=== PATIENT | female | born 1965 | race Caucasian/White ===

== ENCOUNTER 2018-07-22 21:23 | Inpatient (IN) ==
[2018-07-22 22:16] LABS: BASO# 0.02 X1000 (0.0-0.2); BASO% 0.1 % (0.0-0.8); EOS# 0.13 X1000 (0.0-0.7); EOS% 0.9 % (0.0-10.0); HEMATOCRIT 38.9 % (37.0-47.0); HEMOGLOBIN 13.4 g/dL (12.0-16.0); IMM GRAN# 0.07 X1000 (0.0-0.04); IMM GRAN% 0.5 % (0.0-0.5); LYMPH# 0.75 X1000 (1.2-3.4); LYMPH% 4.9 % (20.5-51.1); MCH 33.8 PG (27-31); MCHC 34.4 g/dL (33-37); MCV 98.2 FL (81-99); MONO# 0.53 X1000 (0.11-0.59); MONO% 3.5 % (1.7-9.3); MPV 9.8 FL (7.4-10.4); NEUT# 13.77 X1000 (1.4-6.5); NEUT% 90.1 % (42.2-75.2); PLT 280 X1000 (130-400); RBC 3.96 XMIL (4.2-5.4); WBC 15.27 X1000 (4.8-10.8)
[2018-07-22 22:20] LABS: ALB/GLOB RATIO 1.2; ALBUMIN 3.8 g/dL (3.5-5.0); CALCIUM 9.3 mg/dL (8.8-10.2); CREATININE 7.7 mg/dL (0.5-0.9); POTASSIUM 3.1 mmol/L (3.5-5.1); TOTAL BILIRUBIN 0.21 mg/dL (0.20-1.00); TOTAL PROTEIN 6.9 g/dL (6.3-8.3)
[2018-07-22] MEDS ORDERED: ZOFRAN IV ONE (23:00)
[2018-07-22] MEDS ORDERED: ROCEPHIN 2 GM in NS 50 ML IV ONE (23:09)
[2018-07-22 23:21] LABS: URINE SOURCE CLEAN CATCH
[2018-07-22 23:52] LABS: BILIRUBIN URINE NEGATIVE (NEGATIVE); BLOOD URINE SMALL (NEGATIVE); COLOR YELLOW; GLUCOSE URINE NEGATIVE (NEGATIVE); KETONE URINE NEGATIVE (NEGATIVE); LEUKOCYTES URINE LARGE (NEGATIVE); NITRITE URINE NEGATIVE (NEGATIVE); PH URINE 6.5; PROTEIN URINE 30 mg/dL (NEGATIVE); SP GRAVITY URINE 1.009; TURBIDITY URINE CLEAR (CLEAR); UR EPITHELIAL CELLS <10 /HPF (<10); URINE BACTERIA 1+ /HPF; URINE RBC <10 /HPF (<10); URINE WBC TNTC /HPF (<10); UROBILINOGEN URINE NORMAL (NORMAL)
[2018-07-23] MEDS ORDERED: MORPHINE IV ONE (00:08)
[2018-07-23] MEDS ORDERED: ZOFRAN IV ONE (00:09)
[2018-07-23 00:20] LABS: LDH BODY FLUID 980 U/L
--- NOTE | 2018-07-23 00:52 | PROVIDER DOCUMENTATION ---
This chart was entered by Jordan Person Scribe, acting as scribe for Otis Morrow MD. HPI-Abdominal Pain/GI Problem - General Stated Complaint: Abd pain Time Seen by Provider: 07/22/18 21:29 Source: patient Allergies/Adverse Reactions: Patient Allergies Allergy/AdvReac Type Severity Reaction Status Date / Time Sulfa (Sulfonamide Allergy Unknown Verified 11/18/15 10:48 Antibiotics) Home Medications: Home Medication List Medication Instructions Recorded Confirmed Last Taken Type Albuterol Sulfate [Proair Hfa] 8.5 gm IH PRN PRN 04/19/14 11/22/15 11/20/15 History Calcitriol 0.25 mcg PO DAILY 04/19/14 11/22/15 11/15/15 09:00 History Citalopram Hydrobromide 20 mg PO DAILY 04/19/14 11/22/15 11/21/15 09:00 History [Citalopram HBr] Iron Fum,Ps/Folic/Bcomp,C No.9 1 each PO DAILY 04/19/14 11/22/15 11/19/15 09:00 History [Integra Plus Capsule] Omeprazole 40 mg PO DAILY 04/19/14 11/22/15 11/21/15 09:00 History Pravastatin Sodium 40 mg PO QHS 04/19/14 11/22/15 11/20/15 20:00 History Tiotropium [place] Inhaler 1 puff INH RTDAILY 04/19/14 11/22/15 11/20/15 09:00 History [Spiriva] Vitamin B Complex [B Complex] 1 each PO DAILY 04/19/14 11/22/15 11/20/15 09:00 History Hydralazine [Apresoline] 25 mg PO TID #90 tablet 11/05/15 11/22/15 11/22/15 05: 00 Rx Loratadine 10 mg PO DAILY 11/18/15 11/22/15 11/19/15 09:00 History Hydrocodone/Acetaminophen [[place] 1 each PO Q4H PRN PRN #20 tablet 11/22/15 Unknown Rx 10-325 Tablet] - History of Present Illness-ABD Nature of Presenting Problems: Pt is a 52 y/o F presents to the ED with diffuse abdominal pain that began at 6pm today. Abdominal Pain Onset Location: reports: generalized abdomen Pain Radiation: reports: no radiation Quality of Pain: reports: aching Severity in ED: reports: moderate Onset/Duration: reports: this evening (6pm) Timing: reports: still present Activities at Onset: reports: none Modifying Factors: improves with: nothing Associated Symptoms: denies: cough, diarrhea, fever/chills, sinus congestion/ drainage, nausea, shortness of breath, vomiting Review of Systems - Adult - REVIEW OF SYSTEMS - ADULT Constitutional: denies: chills, fever Eyes: reports: no symptoms reported Ears, Nose, Mouth & Throat: reports: no symptoms reported Cardiovascular: denies: chest pain, edema Respiratory: denies: cough, shortness of breath, wheezing Gastrointestinal: reports: abdominal pain. denies: diarrhea, nausea, vomiting Genitourinary: reports: no symptoms reported Musculoskeletal: denies: back pain, neck pain Integumentary: reports: no symptoms reported Neurological: denies: dizziness/vertigo, headache/migraines Psychiatric: reports: no symptoms reported Endocrine: reports: no symptoms reported Hematologic/Lymphatic: reports: no symptoms reported Allergic/Immunologic: reports: no symptoms reported All Other Systems: Reviewed and Negative Past History - Adult - PAST MEDICAL HISTORY-ADULT Review of Records: reports: Old Records Reviewed, Nursing Assessment Review, Medications Reviewed Major Childhood Illnesses: reports: denies history Cardiovascular: reports: HTN Respiratory: reports: COPD Gastrointestinal: reports: GERD Obstetrical/Gynecological: reports: denies history Genitourinary: reports: ESRD Musculoskeletal: reports: denies history Neurological: reports: denies history Psychiatric: reports: anxiety Endocrine/Immune: reports: denies history Other Conditions: reports: denies history, other (iron deficiency anemia) - PRIOR SURGERIES/PROCEDURES Surgical/Procedure History: reports: other (lumpectomy) - IMMUNIZATION STATUS Childhood Immunizations: See Nurse Assessment Flu Vaccine: See Nurse Assessment - FAMILY HISTORY Family History: reviewed, not pertinent - SOCIAL HISTORY Smoking: cigarettes, greater than 1 pack/day Substance Use: none/never Living Situation: family Physical Exam-General - CONSTITUTIONAL General Appearance: alert, no apparent distress - EYES Eyes: PERRL/EOMI, pink conjunctivae - HEAD, EARS, NOSE, MOUTH & THROAT HENMT: moist mucous membranes, normal ENT inspection, pharynx normal - NECK Neck: non-tender, full range of motion, supple, normal inspection - RESPIRATORY Respiratory: lungs clear, normal breath sounds, no pleuratic chest pain, no respiratory distress, no accessory muscle use - CARDIOVASCULAR Cardiovascular: normal peripheral pulses, regular rate, rhythm - GASTROINTESTINAL (ABDOMEN) Abdominal Exam: soft, tenderness (epigstric and diffuse). negative: guarding, rebound - MUSCULOSKELETAL Back Exam: normal inspection, no CVA tenderness, no vertebral tenderness Extremity: normal range of motion, non-tender, normal gait, normal inspection - SKIN Integumentary: normal color, normal turgor - NEUROLOGIC Neurologic: grossly normal, no motor/sensory deficits - PSYCHIATRIC Psych/Mental Status: normal mood/affect, normal thought content, normal thought process, oriented x 3 Progress - PLAN OF CARE/RESULTS Progress/Plan/Lab Results: Orders Category Date Time Status Saline Loc NOW Care 07/22/18 21:23 Active CHEST-2 VIEWS [RAD] Stat Exams 07/22/18 21:23 Ordered CBC WITH ELECTRONIC DIFF [HEME] Stat Lab 07/22/18 21:23 Uncollected COMPREHENSIVE METABOLIC PANEL [CHEM] Stat Lab 07/22/18 21:23 Uncollected LACTATE, PLASMA [CHEM] Stat Lab 07/22/18 21:23 Uncollected URINALYSIS W/POSS RFLX CULT [URINALYSIS] Stat Lab 07/22/18 21:23 Uncollected A/P will admit for suspected peritonitis, milky ascitic fluid, elevated white count, N/V, pain. Spoke with Dr correa for admission. Result Diagrams: 07/22/18 21:30 07/22/18 21:30 - REASSESSMENT Reassessment #1 Time Reassessed: 22:30 (pt feeling better requesting ) Status: improving Reassessment #2 Time Reassessed: 23:30 Status: improving Reassessment #3 Time Reassessed: 23:48 Status: unchanged Reassessment #4 Time Reassessed: 00:09 Status: other (complaining of abdominal pain, and nausea, will give morphine and zofran) - CT/MRI 1 CT Study: Abdomen, Pelvis Impression: Abnormal (1. Moeate amount of free fuid in the abdomen and pelvis likely related to patient periotoneal dialysis. 2. Gallstones within the gallbaldder. No gallbaldder wall thickening identified but there is some mild pericholexystic fluid which maybe related to the ascites. Ultrasound may be considered for further evaluatin. 3. Small atophic kidneys. Small right renal stone withour hydronephrosis. $. Norm; appendix), See EMR Report - CONSULTS/PCP/HOSPITALIST Notification #1 *Consult/PCP/Hospitalist*: Hospitalist- Dr Correa Time Discussed: 00:45 Reason/Comments: Review of HPI for admission Consult Disposition: Will see in ED (Accepts) Departure - Departure Date of Disposition Decision: 07/23/18 Time of Disposition Decision: 00:49 DIAGNOSIS: Abdominal pain, Spontaneous bacterial peritonitis Disposition: ADMITTED INPATIENT 09 Certified Medical Emergency: Emergent Condition: Fair Referrals and Follow-Ups: None,PCP [Primary Care Provider] - Discharge Education: Steps to Quit Smoking, [id number] - Critical Care Note This patient required my direct & personal management of CC.: No Attestation - Physician/ MEG Attestation Patient care was provided by Advanced Practice Provider:: No The physician spent face to face time with patient:: Yes Advanced Practice Provider documentation review:: Supervising physician onsite and consulted in the evaluation and care of this patient. The physician did have a face to face encounter with the patient. This chart was documented by the indicated scribe, (Jordan Person Scribe) and accurately reflects the services I performed and decisions made by me, Otis Morrow MD, as attested by the provider's signature.
[2018-07-23] MEDS ORDERED: ZOSYN 3.375 GM in NS 50 ML IV SCH (01:00)
[2018-07-23 01:05] LABS: BODY FLUID SOURCE PERITONEAL FLUID; MONOS 10 %; POLYS 90 %
[2018-07-23 01:06] LABS: WBC BF 9300 /cumm
[2018-07-23] MEDS ORDERED: KLOR-CON PO ONE (01:43)
[2018-07-23] MEDS ORDERED: NS 500 ML IV ONE (01:43)
[2018-07-23 03:22] LABS: INR 0.91; PTT 27.7 Seconds (22.3-41.8)
--- NOTE | 2018-07-23 04:17 | HISTORY AND PHYSICAL ---
ADDENDUM HISTORY OF PRESENT ILLNESS: Ms Liat Adkins is a 52-year-old lady with endstage kidney disease on hemodialysis and has a history of hypertension. She comes today complaining of diffuse abdominal pain with associated chills, but no fever. She has since had about 6 vomiting episodes. The most recent emesis contained recently eaten food. She denies any cardiorespiratory complaints. PHYSICAL EXAMINATION: GENERAL: A middle-aged woman who is moderate distress from pain. VITAL SIGNS: Blood pressure is 148/85, heart rate 91, respiratory rate is 20, temperature is 98.5. ABDOMEN: Slightly protuberant, soft, diffusely tender with positive rebound, but no guarding. Bowel sounds are hypoactive. LAB WORK: Showed a white count of 16,000 with 90% left shift. Potassium was 31, BUN is 57, creatinine is 7.7. A CT scan was done and it showed no evidence of acute cholecystitis and did show ascitic fluid. The patient's ascitic fluid aspirate was cloudy, but cell count is pending. PLAN: We will await final ID and sensitivities. Start the patient on Zosyn to cover for intraabdominal pathogens, i.e. gram-negatives and anaerobes. The patient is slightly volume- depleted; will give IV fluids and correct hypokalemia. Will consult Dr. 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 Will treat the patient symptomatically otherwise. cc: Haresh Correa MD
--- NOTE | 2018-07-23 05:40 | HISTORY AND PHYSICAL ---
PRIMARY CARE PROVIDER AND HOMICIDE [employer]QU[employer] COMMANDING OFFICER: Dr. Medley DATE AND TIME: 07/23/2018 at 0200. CHIEF COMPLAINT: Abdominal pain with nausea and vomiting. HISTORY OF PRESENT ILLNESS: Ms Adkins is a 52-year-old female with past medical history most notable for end stage renal disease on nightly peritoneal dialysis. She also has a history of hypertension, hyperlipidemia, iron deficiency anemia and COPD. The patient states that for a few days now that she "hasn't felt right." She stated yesterday at approximately 6 p.m. she began having sharp abdominal pain that was 10/10. It was in her periumbilical area. She states this pain was constant. It is now an achy type pain, and is more generalized. She states that after receiving morphine in the ER that her pain has resolved at this time. She also reports that she has had approximately 6 episodes of vomiting and that her emesis was a foamy yellow. She denied any hematemesis, hematochezia or melena. The patient denied any diarrhea , stated her last bowel movement was today. Denied any fever, body aches, but is reporting chills. She also reported that she had been having dysuria for a few days now. She denied any recent history of urinary tract infection, but stated that she was diagnosed with a vaginal yeast infection approximately [address] Medley had given her a prescription for fluconazole 100 mg daily p.o. for 7 days and has 2 more days for this prescription to be taken. She denied any headache or dizziness. She denied any chest pain or shortness of breath. She also denied any pain, numbness, tingling or swelling in her extremities. On evaluation in the ER, the patient was noted to have a white blood cell count of 15,270. She was mildly hypokalemic with a potassium of 3.1. She also was noted to have large leukocytes, too numerous to count WBCs, and 1 plus bacteria in her urine. They did obtain some peritoneal fluid which did show that the patient had white blood cells and a peritoneal fluid of 9300. On her chest x-ray the patient did appear to have some COPD changes though at this time there does not appear to be any acute abnormalities although we are awaiting official radiology reading. CT abdomen and pelvis without contrast did show a moderate amount of free fluid in the abdomen and pelvis most likely related to the patient's peritoneal dialysis. There was gallstones within the bladder, but there was no gallbladder wall thickening identified, but there was some mild pericholecystic fluid which may be related to ascites. Small atrophic kidneys and there was a small right renal stone without hydronephrosis. There was a normal appendix. Given these findings, the patient will be admitted for further evaluation of peritonitis and urinary tract infection. REVIEW OF SYSTEMS: A 14-point review of systems was conducted with the patient and all were negative except for pertinent positives mentioned in the above HPI. PAST MEDICAL HISTORY: 1. Endstage renal disease on peritoneal dialysis followed by Dr. Medley. 2. COPD. 3. Gastrointestinal disease. 4. Hypertension for which the patient states she no longer to take medication for. 5. Hyperlipidemia. 6. Iron deficiency anemia. 7. Seasonal allergies. 8. Anxiety. PAST SURGICAL HISTORY: 1. Breast biopsy with subsequent benign tumor removal. 2. Renal biopsy. 3. Peritoneal dialysis port placement. SOCIAL HISTORY: The patient is a current smoker and smokes 1 to 1-1/2 packs or cigarettes per day and has done for approximately 36 years. She denies any alcohol or illicit drug use. States that she does live with her daughter at this time. FAMILY HISTORY: Positive for hypertension, diabetes mellitus, congestive heart failure, coronary artery disease and colon cancer. She also had a brother that from an MT at age 53. ALLERGY: The patient reports allergy to sulfa. HOME MEDICATIONS: We are awaiting the patient's home medication list to be reconciled at this time. She reports that her sister does have a list is supposed to be bringing this list to the hospital, though the patient reports that she has recently been prescribed Diflucan 100 mg p.o. for a yeast infection for which she states she has completed day 5 of this 7-day supply and has 2 doses left. DIAGNOSTIC DATA/LABORATORY RESULTS: White blood cell count is 15,270, hemoglobin 13.4, hematocrit 38.9, platelet count 280,000. PT 13, INR 0.91, PTT 27.7. Sodium 138, potassium 3.1, chloride 95, bicarbonate 24, BUN 57, creatinine 7.7 with a GFR of 6, glucose 111, calcium 9.3. Liver function tests were within normal limits. Lactate is 1.1. Urinalysis is obtained via clean catch, positive for protein, small blood, large leukocytes and too numerous to count white blood cells and 1+ bacteria. Peritoneal fluid did have 9300 white blood cells. There were 90 polynuclear white blood cells, 10 mononuclear white blood cells and LDH was 980. Urine culture and blood culture as well as peritoneal fluid culture and Gram stain are pending at this time. We are also awaiting an EKG. Chest x-ray shows some COPD changes and no acute abnormalities and we are awaiting the official radiology over-read. CT abdomen and pelvis does show a moderate amount of free fluid in the abdomen and pelvis likely related to the patient's peritoneal dialysis. There are gallstones within the gallbladder. There is no gallbladder wall thickening identified, but there is some mild pericholecystic fluid which may be related to ascites. The radiologist did state that ultrasound may be considered for further evaluation. There are small atrophic kidneys. There is also a small right renal stone without hydronephrosis and a normal appendix. PHYSICAL EXAMINATION: VITAL SIGNS: Temperature 98.4, heart rate 87, respirations 20, blood pressure 124/78. Oxygen saturation is 93-94% on room air. GENERAL: Ms Adkins is a very pleasant 52-year-old female who is resting in the ER stretcher. She is no acute distress. She is awake, alert and able to answer questions appropriately. HEENT: Head is atraumatic, normocephalic. Pupils are equal, round, and reactive to light. They are 3 mm bilaterally and brisk. Oral mucosa is moist. Oropharynx is clear. NECK: Supple. Trachea midline. CARDIOVASCULAR: The patient has normal S1 and S2. No murmurs, gallops or rubs appreciated. Regular rate and rhythm. PULMONARY: The patient has symmetrical chest expansion bilaterally. Lung sounds are clear to auscultation in bilateral full molina. ABDOMEN: Soft. It does appear to be distended. She does have generalized tenderness noted upon palpation. The patient's peritoneal dialysis port site does appear to be within normal limits. She has no erythema, warmth or drainage noted in this area. Bowel sounds are present although are hypoactive. EXTREMITIES: No cyanosis, clubbing or edema noted. Pulse, motor and sensory are intact in all extremities. Radial pulses and pedal pulses are 2+ bilaterally. NEUROLOGIC: The patient is alert and oriented to person, place, time and situation. There do not appear to be any focal neurologic deficits noted. IMPRESSION AND PLAN: 1. Peritonitis. For further evaluation of this we have performed peritoneal fluid studies. We are awaiting a culture at this time. We have obtained blood cultures as well. The patient has been placed with antibiotic with Zosyn. This has been renally dosed. We have placed a consult with Dr. Medley and will await his evaluation and further recommendations in the morning. 2. Urinary tract infection. The patient is on antibiotic with Zosyn. We will continue this. A urine culture has been ordered. We will await this and continue to follow. 3. Abdominal pain, nausea and vomiting. At this time it is likely that her abdominal pain is related to her peritonitis and she does have a urinary tract infection as well. We will continue treatment of this as above in #1 and #2. We have placed her on p.r.n. morphine and Zofran as needed. 4. Endstage renal disease on peritoneal dialysis. For this we have placed a consult with Dr. Medley and will await his evaluation and further recommendations for management. 5. Mild hypokalemia. The patient did receive 20 mEq of potassium chloride. We will repeat her renal profile later this morning. 6. Gastroesophageal reflux disease. The patient has been placed on Protonix 40 mg q.24 hours. 7. Chronic obstructive pulmonary disease. We have placed p.r.n. DuoNeb treatments. 8. Deep vein thrombosis prophylaxis with bilateral sequential compression devices. We will hold anticoagulants at this time until she has been evaluated by Dr. Medley in case she may require any procedures related to her peritonitis. The patient has been placed on the medical floor with telemetry. She will have vital signs q.4 hours, will do strict intake and output, incentive spirometry. The patient will be n.p.o. except for ice chips. Also, the patient was recently diagnosed with vaginal candidiasis and was given a prescription for Diflucan 100 mg p.o. daily for 7 days. She does have 2 doses left and we will go ahead and place an order for this as well. Further orders and recommendations pending hospital course, diagnostic studies, and physician evaluation. Dictated by YENY Pearson for Haresh Correa MD cc: Haresh Correa MD [facility]
[2018-07-23] MEDS: ZOSYN 2.25 GM in NS 50 ML IV SCH ×2 (06:02→17:59)
[2018-07-23] MEDS ORDERED: TYLENOL PO PRN (07:06)
[2018-07-23] MEDS ORDERED: ZOFRAN IV PRN (07:06)
--- NOTE | 2018-07-23 07:20 | Diag Imaging Result Doc PS360 ---
EXAM: CHEST-1 VIEW 07/22/2018 HISTORY: missed diaslys TECHNIQUE: AP portable at 2226 COMMENT: There is minimal interstitial pulmonary edema which was not present on 04/25/2017. IMPRESSION: Minimal pulmonary edema. Electronically signed by Jaime Posada 07/23/2018 7:18 AM
--- NOTE | 2018-07-23 07:23 | EKG Report ---
Test Performed on : 07/23/2018 03:39:14 AM Test Reason : Abd. Pain with N/V Blood Pressure : / mmHG Vent. Rate : 082 BPM Atrial Rate : 082 BPM P-R Int : 108 ms QRS Dur : 082 ms QT Int : 430 ms P-R-T Axes : 048 018 052 degrees QTc Int : 502 ms Sinus rhythm. with short [place] Nonspecific ST abnormality Prolonged QT Abnormal ECG When compared with ECG of 18-NOV-2015 11:16, No significant change was found Unconfirmed Result
--- NOTE | 2018-07-23 07:32 | Diag Imaging Result Doc PS360 ---
EXAM: CT ABD/PELVIS W/IV CONT ONLY INDICATION: abdominal pain TECHNIQUE: This exam was performed using automated exposure control, adjustment of mA or kV according to patient size, and/or use of iterative reconstruction technique. COMPARISON: None. FINDINGS: There are mild COPD changes at the lung bases. There is a tiny low dense focus at the inferior right hepatic lobe that probably represents a very small cyst. The liver is unremarkable, otherwise. There are a few layering stones in the gallbladder lumen. There is no evidence of gallbladder wall thickening. There is a tiny low dense focus involving the spleen also probably represents a cyst. The spleen is unremarkable, otherwise. The pancreas and adrenal glands are essentially unremarkable. There is a moderate amount of free fluid in the abdomen tracking around the liver and spleen and layering in the pelvis. There is a peritoneal dialysis catheter in the pelvis. The kidneys are both atrophic. There are a few tiny renal cysts bilaterally. There is a small nonobstructing intrarenal stone at the lower pole of the right kidney. There is no hydronephrosis. No solid renal mass is identified. The urinary bladder is unremarkable. The reproductive tract is essentially unremarkable CT. There is nonspecific coarse calcification in the anterior left pelvis on image 100 that probably represents an old focus of fat necrosis. The appendix is normal. There is mild uncomplicated diverticulosis coli. The GI tract is essentially unremarkable, otherwise. There is aortoiliac atherosclerotic calcification. The bony structures are grossly intact. IMPRESSION: 1.Moderate amount of free fluid in the abdomen that is assumed to be related to peritoneal dialysis. 2.Cholelithiasis. 3.Other external/nonacute findings detailed above. Electronically signed by Hosea Muñoz 07/23/2018 7:29 AM
[2018-07-23 08:07] LABS: EOS# 0.01 X1000 (0.0-0.7); EOS% 0.1 % (0.0-10.0); HEMATOCRIT 33.2 % (37.0-47.0); HEMOGLOBIN 11.2 g/dL (12.0-16.0); IMM GRAN# 0.03 X1000 (0.0-0.04); IMM GRAN% 0.2 % (0.0-0.5); LYMPH# 0.55 X1000 (1.2-3.4); LYMPH% 3.4 % (20.5-51.1); MCH 33.3 PG (27-31); MCHC 33.7 g/dL (33-37); MCV 98.8 FL (81-99); MONO# 0.42 X1000 (0.11-0.59); MONO% 2.6 % (1.7-9.3); MPV 9.8 FL (7.4-10.4); NEUT# 15.27 X1000 (1.4-6.5); NEUT% 93.7 % (42.2-75.2); PLT 213 X1000 (130-400); RBC 3.36 XMIL (4.2-5.4); RDW 12.1 % (11.5-14.5); WBC 16.28 X1000 (4.8-10.8)
[2018-07-23 08:10] LABS: BANDS 14 % (0-1); LYMPHS 4 % (21-51); MONO 2 % (1-9); SEGS 78 % (42-75)
[2018-07-23] MEDS ORDERED: VANCOMYCIN 1 GM/NS 1 GM/250 ML IVPB IV ONE (08:16)
[2018-07-23] MEDS: DIFLUCAN PO SCH (08:51)
[2018-07-23] MEDS: MORPHINE IV PRN ×3 (08:51→22:33)
[2018-07-23] MEDS: SODIUM CHLORIDE 0.9% INJ SCH (08:53)
[2018-07-23] MEDS: PROTONIX IV SCH (08:53)
[2018-07-23 08:58] LABS: ALBUMIN 3.1 g/dL (3.5-5.0); CALCIUM 7.8 mg/dL (8.8-10.2); MAGNESIUM 1.3 mg/dL (1.5-2.7); PHOSPHORUS 4.8 mg/dL (2.7-4.5); POTASSIUM 3.7 mmol/L (3.5-5.1)
[2018-07-24] MEDS: MORPHINE IV PRN ×3 (03:07→12:31)
--- NOTE | 2018-07-24 03:15 | NEPHROLOGY CONSULTATION ---
DATE: 07/23/2018 REASON FOR CONSULTATION: ESRD and peritonitis. HISTORY OF PRESENT ILLNESS: Ms. Adkins is a 52-year-old, white female who is currently using CAPD for management of CKD stage 5D. She has been using this modality for an extended time and has never had a complication. She performed her procedure overnight, the night prior to admission. She had no difficulty. She had not noticed any change in her fluid that was in her affluent jug. Through the day, she says she was well until the evening when she had marked weakness, abdominal pain, nausea, and vomiting. No chills or fevers. Bowel movements were normal. No shortness of breath or chest discomfort. Her symptoms worsened such that she ultimately came to the emergency room by ambulance. Her initial evaluation found blood pressure 129/74 with heart rate 88. She had a tender abdomen on exam which led to CT of the abdomen which demonstrated a moderate amount of free fluid, consistent with peritoneal dialysis, but no other acute findings. Cell count of her peritoneal dialysis fluid found 9300 white cells with 90% polys. She was dosed with Zosyn and admitted to the hospital. At the time of my exam, she was still having significant pain. PAST MEDICAL HISTORY: As above. HOME MEDICATIONS: Include multivitamin, calcitriol, citalopram, ferric citrate, fluconazole, furosemide, omeprazole, potassium chloride, tiotropium, albuterol, magnesium oxide. ALLERGIES: Sulfa. SOCIAL HISTORY: She lives with her daughter and her grandchildren. Still smokes. REVIEW OF SYSTEMS: Noncontributory. FAMILY HISTORY: Noncontributory. PHYSICAL EXAMINATION: My examination was performed at approximately 08:00. Vital Signs: Temperature 99.9 degrees, blood pressure 103/66, heart rate 93. General: She is a middle-aged woman in obvious pain but no acute distress. Skin: Warm and dry. Somewhat flushed. HEENT: Conjunctivae are pink. Pupils are equal. Oropharynx is clear. Tongue is dry. Dentition normal. Neck: Supple. Trachea is midline. Neck vein distention is not present. Trachea is midline. Heart: PMI is nondisplaced. Regular rate and rhythm without gallops, murmurs, or rubs. Lungs: Have equal excursion, equal breath sounds. No crackles, wheezes, or accessory muscle use. Abdomen: Distended, tender. Bowel sounds are present. No palpable organomegaly. Extremities: Have no edema, clubbing, or cyanosis. IMPRESSION AND PLAN: Acute bacterial peritonitis. I administered a dose of vancomycin at 08:00. Continue her Zosyn as ordered. We will ask pharmacy to dose her vancomycin while she is an inpatient. Cultures were obtained and data are pending. I will use the cycler with 1 hour cycle duration in order to decrease her burden of inflammatory substances in her abdomen. She was reexamined late in the day at around 4:30 p.m. and her pain was significantly improved and she was hungry. Re-evaluate her peritoneal dialysis fluid in the morning. You can hold her oral medications for now. cc: Gregorio Medley MD
[2018-07-24 06:21] LABS: BASO# 0.01 X1000 (0.0-0.2); BASO% 0.1 % (0.0-0.8); EOS% 1.6 % (0.0-10.0); HEMATOCRIT 34.3 % (37.0-47.0); HEMOGLOBIN 11.4 g/dL (12.0-16.0); IMM GRAN# 0.03 X1000 (0.0-0.04); IMM GRAN% 0.2 % (0.0-0.5); LYMPH# 1.07 X1000 (1.2-3.4); LYMPH% 8.3 % (20.5-51.1); MCH 33.2 PG (27-31); MCHC 33.2 g/dL (33-37); MONO# 0.57 X1000 (0.11-0.59); MONO% 4.4 % (1.7-9.3); MPV 9.8 FL (7.4-10.4); NEUT# 10.95 X1000 (1.4-6.5); NEUT% 85.4 % (42.2-75.2); PLT 215 X1000 (130-400); RBC 3.43 XMIL (4.2-5.4); RDW 12.3 % (11.5-14.5); WBC 12.83 X1000 (4.8-10.8)
[2018-07-24] MEDS: ZOSYN 2.25 GM in NS 50 ML IV SCH ×2 (06:40→22:23)
[2018-07-24 06:54] LABS: BANDS 6 % (0-1); LYMPHS 18 % (21-51); MONO 4 % (1-9); SEGS 72 % (42-75)
[2018-07-24 07:12] LABS: CALCIUM 8.2 mg/dL (8.8-10.2); CREATININE 5.7 mg/dL (0.5-0.9)
[2018-07-24] MEDS: SODIUM CHLORIDE 0.9% INJ SCH (09:24)
[2018-07-24] MEDS: PROTONIX IV SCH (09:24)
[2018-07-24] MEDS: DIFLUCAN PO SCH (09:24)
--- NOTE | 2018-07-24 09:33 | NEPHROLOGY PROGRESS NOTE ---
DATE: 07/24/2018 SUBJECTIVE: The patient is sitting up in bed. She is complaining of significant abdominal pain. She has received morphine, but states that does not really control her pain. She denies any nausea or vomiting. OBJECTIVE: Vital Signs: Temperature 97.7 degrees, pulse 109, respiratory rate 18, blood pressure 107/70. Intake 800 mL. Output 25 mL. Her PD output has not been documented yet. General: This is a middle-aged female sitting up in bed. She appears in obvious pain, but no acute distress. HEENT: Normocephalic, atraumatic. Conjunctivae pink. Oral mucosa moist. Neck : Supple. There is no JVD. Cardiovascular: Regular rate and rhythm. There is no murmur or gallop. Pulmonary: She is clear bilaterally. She has no increased work of breathing. Abdomen: Soft, tender. Positive bowel sounds. Her PD catheter is currently connected. There is no drainage or erythema noted to the insertion site. Integumentary: Skin is warm and dry. Extremities : No clubbing, cyanosis, or edema. Neurologic: Grossly nonfocal. LABORATORY DATA: WBC 12.8, hemoglobin 11.4. Sodium 132, potassium 3.0, CO2 25 , creatinine 5.7. ASSESSMENT AND PLAN: Acute bacterial peritonitis. The patient remains on vancomycin and piperacillin/tazobactam. Cultures are pending. We will reevaluate her peritoneal dialysis fluid this morning. We will continue with her current treatment plan for her dialysis while she is in the hospital. Symptomatically not improving. I asked Dr. Green to remove the PD catheter today and place a tunneled dialysis catheter. rg Dictated by YENY Fang for Gregorio Medley MD Face to face encounter, data reviewed, discussed with David Ramirez on 07/24/18. I agree with the above assessment and plan of care. rg cc: Gregorio Medley MD [facility]
[2018-07-24] MEDS ORDERED: POTASSIUM CHLORIDE 60 MEQ in NS 500 ML IV ONE (10:26)
[2018-07-24] MEDS ORDERED: BENADRYL IV PRN (10:42)
--- NOTE | 2018-07-24 12:21 | PROGRESS NOTE ---
DATE: 07/24/2018 SUBJECTIVE: Patient continues to report abdominal pain that is diffuse. Denies any fever or chills. Reports her appetite is getting better. OBJECTIVE: Vital Signs: Temperature 97.8 degrees, heart rate 71, respiratory rate 18, blood pressure 104/65, O2 saturation 97% on 2 L nasal cannula. General examination: This is a 52-year- old female, lying in bed in no acute distress. Cardiovascular exam: S1, S2 heard. No murmurs, gallops, or rubs. Regular rate and rhythm. Respiratory exam: Clear bilaterally to auscultation. No work of breathing. Not using accessory muscles. Abdomen: Soft. Generalized tenderness to palpation all over the abdomen. Patient's peritoneal dialysis port site does not appear to be infected. No erythema, warmth or drainage noted. Extremities: No clubbing, cyanosis, or edema. Peripheral pulses present in both legs. Neurological exam : Patient alert and oriented x3. Moves 4 extremities. LABORATORY DATA: White cell count 12.93, hemoglobin 8.4, hematocrit 34.3, platelets 215 with sodium 132, potassium 3.0. ASSESSMENT AND PLAN: 1. Catheter-associated peritonitis secondary to peritoneal dialysis. The patient has been started on vancomycin and Zosyn, renally dosed. The patient continues to have persistent abdominal pain. Dr. Medley from Nephrology has been consulted. We will follow recommendations. 2. Urinary tract infection. The patient is on Zosyn as we mentioned below. We will continue to monitor and check urine culture later on. 3. Abdominal pain. No nausea, vomiting, secondary to peritonitis. Abdominal pain still persists. The patient is on antibiotics. We will wait for Dr. Medley to see. Some recommendations. 4. End-stage renal disease on peritoneal dialysis. Peritoneal dialysis has been continued. 5. Mild hypokalemia. We are going to repeat potassium today. 6. Chronic obstructive pulmonary disease. The patient is on DuoNeb p.r.n. for shortness of breath. cc: Phani Sinclair MD MTDD
[2018-07-24] MEDS: DUONEB (A & A) INH PRN ×2 (12:29→16:58)
--- NOTE | 2018-07-24 12:36 | GENERAL SURGERY CONSULTATION ---
DATE: 07/24/2018 TIME: 1210 hours in the afternoon. HISTORY OF PRESENT ILLNESS: Ms. Adkins is a 52- year old with end-stage renal disease on PD. She was admitted on 07/23 with abdominal pain, nausea and vomiting. She is found to have peritonitis. With antibiotic therapy, she has not significantly improved. I have been asked to remove her PD catheter and place a tunnel dialysis catheter so that she can resolve her peritonitis. PAST MEDICAL HISTORY: Pertinent for COPD, hypertension, hyperlipidemia, iron-deficiency anemia, and anxiety. PREVIOUS SURGERIES: Peritoneal dialysis catheter placement 2 years ago. Previous breast biopsy. SOCIAL HISTORY: She is a smoker and smokes 1 to 1-1/2 packs a day. She lives with her daughter. FAMILY HISTORY: Pertinent for diabetes, hypertension, congestive failure, coronary disease. MEDICATIONS: Listed. ALLERGIES: Sulfa. REVIEW OF SYSTEMS: Pertinent for abdominal pain, nausea, vomiting and generalized malaise; otherwise negative in other subsystems. PHYSICAL EXAMINATION: Vital Signs: She is afebrile. Heart rate 71, blood pressure 104/65. She has bilateral breath sounds. Heart: Regular rate and rhythm. Abdomen: Diffusely tender. The catheter is coming out the right upper quadrant. Extremities: She has no peripheral edema. Neurologic: She is awake and alert. DIAGNOSTICS/LABS: White count is 12,800, hemoglobin 11.4. Potassium 3.0, BUN 40, creatinine 5.7. ASSESSMENT: Peritonitis that is not improving clinically to antibiotic therapy. The plan will be to place a tunnel dialysis catheter and remove her peritoneal dialysis catheter. I have been asked by Dr. Medley to proceed today if possible. I discussed this with her. She understands and agrees to proceed. cc: Julian Green MD
[2018-07-24 14:05] LABS: BODY FLUID SOURCE PERITONEAL FLUID; WBC BF 275 /cumm
[2018-07-24 14:06] LABS: MONOS 7 %; POLYS 93 %
[2018-07-24] MEDS ORDERED: XYLOCAINE-MPF 2% ONE (15:03)
[2018-07-24] MEDS ORDERED: DIPRIVAN 1% ONE (15:03)
[2018-07-24] MEDS ORDERED: FENTANYL ONE (15:04)
[2018-07-24] MEDS ORDERED: SENSORCAINE-MPF 0.5%/EPI 1:200,000 ONE (17:02)
[2018-07-24] MEDS ORDERED: HEPARIN ONE ×2 (17:02)
[2018-07-24] MEDS ORDERED: NS 250 ML ONE (17:02)
[2018-07-25] MEDS ORDERED: NS 2,000 ML MISC PRN (06:33)
[2018-07-25] MEDS ORDERED: TIGHT: 0.2 ML/HR FOR DIALYSIS MISC PRN (06:33)
[2018-07-25] MEDS ORDERED: HEPARIN IV PRN (06:33)
[2018-07-25 06:54] LABS: HEMATOCRIT 31.8 % (37.0-47.0); HEMOGLOBIN 10.4 g/dL (12.0-16.0); IMM GRAN# 0.03 X1000 (0.0-0.04); IMM GRAN% 0.3 % (0.0-0.5); LYMPH# 0.34 X1000 (1.2-3.4); LYMPH% 2.8 % (20.5-51.1); MCHC 32.7 g/dL (33-37); MONO# 0.18 X1000 (0.11-0.59); MONO% 1.5 % (1.7-9.3); MPV 9.7 FL (7.4-10.4); NEUT# 11.42 X1000 (1.4-6.5); NEUT% 95.4 % (42.2-75.2); PLT 224 X1000 (130-400); RBC 3.15 XMIL (4.2-5.4); RDW 11.8 % (11.5-14.5); WBC 11.97 X1000 (4.8-10.8)
--- NOTE | 2018-07-25 07:17 | OPERATIVE NOTE ---
PROCEDURE DATE: 07/24/2018 PREOPERATIVE DIAGNOSES: 1. Peritonitis. 2. Chronic kidney disease 5. POSTOPERATIVE DIAGNOSES: 1. Peritonitis. 2. Chronic kidney disease 5. PROCEDURES PERFORMED: 1. Placement of right internal jugular vein tunneled dialysis catheter with ultrasound and fluoroscopic guidance. 2. Removal of peritoneal dialysis catheter. SURGEON: Jluian Green M.D. [employer] OPERATOR: Maribel. ANESTHESIA: General. DESCRIPTION OF PROCEDURE: Satisfactory general anesthesia was achieved, and LMA was used. The right side of the neck and upper anterior chest were prepped and draped in a sterile fashion. We measured and felt that a 19 cm precurved catheter would be appropriate. We imaged the right internal jugular vein, and made a stab incision, and accessed the right internal jugular vein under ultrasound guidance, and passed the guidewire into the superior vena cava to the right atrium. We anesthetized the skin below the clavicle, made a small incision, and then tunneled the precurved catheter from the subclavian incision to the neck incision. We then dilated the tract sequentially, and passed the dilator and introducer sheath over the guidewire. We removed the dilator and guidewire, and introduced the tunneled catheter through the sheath, into the superior vena cava, to the right atrium. After placing the catheter, we then aspirated easily. We irrigated easily with heparinized lock solution, that is 1000 units/mL. We then secured the flange to the skin with nylon contained within the tray. A 4-0 Polysorb was used to close the skin of the neck. Sterile OpSites were applied. We then prepped and draped the abdominal cavity. We anesthetized the skin below the umbilicus. We incised the skin, and carried our incision down to the fascia, where the PD catheter entered the peritoneal cavity. We freed up the cuff from the fascia, delivering the intra-abdominal portion of the PD catheter. We then placed tension on the catheter as it went to the subcutaneous tunnel. We dissected all the way to the cuff, and divided the catheter on the peripheral side of the cuff so that the rest of the catheter that was in the subcutaneous tunnel to the exit site simply fell out. We closed the hole in the fascia with 2-0 Polysorb [id number] stitches. We irrigated out the subcutaneous tunnel. Hemostasis was satisfactory. We closed the subcutaneous tissue with 3-0 Polysorb. We then closed the skin with a 4-0 Polysorb subcuticular stitch. Telfa and sterile OpSite was applied. A small 4 x 4 was placed on the catheter exit site. She tolerated the procedure satisfactorily. At this point, we then took the strong heparin, and injected into the tunnel catheter, that is 5000 units/mL, 1.7 mL in 1 lumen and 1.7 mL in the other lumen. She tolerated it well, and was sent to the recovery room in satisfactory condition. cc: MD Gregorio Crump MD
[2018-07-25 07:31] LABS: ALBUMIN 2.9 g/dL (3.5-5.0); CALCIUM 8.9 mg/dL (8.8-10.2); CREATININE 8.3 mg/dL (0.5-0.9); PHOSPHORUS 8.8 mg/dL (2.7-4.5)
[2018-07-25] MEDS: PROTONIX IV SCH (13:57)
[2018-07-25] MEDS: ZOSYN 2.25 GM in NS 50 ML IV SCH ×2 (13:58→23:46)
[2018-07-25] MEDS: MORPHINE IV PRN (13:58)
[2018-07-25] MEDS: NORCO-5 PO PRN ×2 (14:56→20:19)
[2018-07-25] MEDS: DUONEB (A & A) INH PRN (15:25)
[2018-07-25] MEDS: PATIENT'S OWN MED PO SCH (18:12)
[2018-07-25] MEDS: LASIX PO SCH (20:20)
--- NOTE | 2018-07-26 01:08 | PROGRESS NOTE ---
DATE: 07/25/2018 SUBJECTIVE: The patient continues to report less abdominal pain today. The patient is having good appetite. Denies any fever or chills. OBJECTIVE: Vital Signs: Temperature 98.0 degrees, heart rate 76, respiratory rate 18, blood pressure 99/55, O2 saturation 98% on room air. General: This is a 52-year-old female lying in bed in no acute distress. HEENT: Head is normocephalic and atraumatic. Neck: No JVD noted. No carotid bruits. No lymphadenopathy. No thyromegaly. Cardiovascular: S1, S2 heard. No murmurs, gallops, or rubs. Regular rate and rhythm. Respiratory: Clear bilaterally to auscultation. No work of breathing. Not using accessory muscles. Abdomen: Soft. Nontender to palpation. Bowel sounds present. No organomegaly. Extremities: No clubbing, cyanosis, or edema. Peripheral pulses present in both legs. Neurological: The patient is alert and oriented x3. Moves all 4 extremities. LABORATORY DATA: Reviewed. ASSESSMENT AND PLAN: 1. Catheter associated peritonitis secondary to peritoneal dialysis. That catheter has been removed. At this time we are providing regular hemodialysis. We will continue with antibiotics while the patient is on dialysis. 2. Urinary tract infection. Urine culture is still pending. We will continue with Zosyn. 3. Abdominal pain, getting better and is secondary to peritonitis. 4. End-stage renal disease. The patient is going to start routine hemodialysis. Today has been the first hemodialysis session. 5. Mild hypokalemia, resolved. 6. Chronic obstructive pulmonary disease. The patient is not having exacerbation. 7. Disposition. At this point the patient has started dialysis. We will see for how long Dr. Medley is planning to keep this patient here. Otherwise she will be discharged with intravenous antibiotics that are supposed to be provided on dialysis session. cc: Phani Sinclair MD
--- NOTE | 2018-07-26 04:28 | GENERAL SURGERY PROGRESS NOTE ---
DATE: 07/25/2018 She is postop day 1 after placement of a tunneled catheter and removal of her PD catheter. Today, she is sitting up, looks much better, feels better, less abdominal pain. She tolerated hemodialysis well. She is obviously clinically improved. cc: Julian Green MD
--- NOTE | 2018-07-26 06:01 | NEPHROLOGY PROGRESS NOTE ---
DATE: 07/25/2018 TIME SEEN: 0720. SUBJECTIVE: Patient is sitting up in bed. She states that she feels better today. She has less abdominal pain. OBJECTIVE: Vital Signs: Temperature 98.7 degrees, pulse 76, respiratory rate 16, blood pressure 114/64, intake 610 mL, output 778 mL. General: This is a middle-aged female, resting in bed. Awake and alert. No acute distress. HEENT: Normocephalic, atraumatic. SUSAN. Oral mucosa moist. Neck: Supple. No JVD. Cardiovascular: Regular rate and rhythm. Pulmonary: Clear bilaterally. Abdomen: Soft, positive bowel sounds. PD catheter site with no drainage. : Not inspected. Voiding. Extremities: No clubbing, cyanosis or edema. Integumentary: Skin is warm and dry. Her tunnel dialysis catheter, right upper chest wall insertion site is clean, dry, and intact. ASSESSMENT AND PLAN: Acute bacterial peritonitis. She had her peritoneal dialysis catheter removed and a tunnel dialysis catheter placed to facilitate continued dialysis. She will continue on vancomycin, piperacillin, and tazobactam until the cultures are completed. We will recheck her vancomycin level, as she will need this after each hemodialysis treatment. Dictated by YENY Fang for Gregorio Medley MD cc: Gregorio Medley MD [facility]
[2018-07-26] MEDS: PRILOSEC PO SCH (06:28)
[2018-07-26 07:24] LABS: HEMATOCRIT 27.7 % (37.0-47.0); HEMOGLOBIN 9.1 g/dL (12.0-16.0); MCHC 32.9 g/dL (33-37); MCV 103.4 FL (81-99); MPV 9.7 FL (7.4-10.4); RBC 2.68 XMIL (4.2-5.4); RDW 11.9 % (11.5-14.5); WBC 7.38 X1000 (4.8-10.8)
[2018-07-26 07:51] LABS: ALBUMIN 2.6 g/dL (3.5-5.0); CALCIUM 8.9 mg/dL (8.8-10.2); CREATININE 4.4 mg/dL (0.5-0.9); PHOSPHORUS 4.3 mg/dL (2.7-4.5); POTASSIUM 3.3 mmol/L (3.5-5.1)
[2018-07-26] MEDS ORDERED: NS 2,000 ML MISC PRN ×2 (09:05→13:36)
[2018-07-26] MEDS ORDERED: HEPARIN IV PRN ×2 (09:05→13:36)
[2018-07-26] MEDS: MAG-OX PO SCH (09:11)
[2018-07-26] MEDS: ROCALTROL PO SCH (09:11)
[2018-07-26] MEDS: LASIX PO SCH ×2 (09:11→21:18)
[2018-07-26] MEDS: SODIUM CHLORIDE 0.9% INJ SCH (09:11)
[2018-07-26] MEDS: CELEXA PO SCH (09:11)
[2018-07-26] MEDS: PROTONIX IV SCH (09:11)
[2018-07-26] MEDS: PATIENT'S OWN MED PO SCH ×3 (09:12→17:00)
[2018-07-26 12:00] LABS: HEPATITIS PROFILE ACUTE SEE COMMENTS
[2018-07-26] MEDS ORDERED: TIGHT: 0.2 ML/HR FOR DIALYSIS MISC PRN (13:36)
--- NOTE | 2018-07-26 14:51 | PROGRESS NOTE ---
DATE: 07/26/2018 SUBJECTIVE: The patient reports some shortness of breath. Denies any fever or chills. OBJECTIVE: Vital Signs: Temperature 98.2 degrees, heart rate 81, respiratory rate 18, blood pressure 119/66, O2 saturation 90% 2 L nasal cannula. General examination: This is a 52-year-old female, lying in bed in no acute distress. HEENT: Head is normocephalic, atraumatic. Cardiovascular exam: S1, S2 heard. No murmurs, gallops, or rubs. Regular rate and rhythm. Respiratory exam: Clear bilaterally to auscultation. No work of breathing or using accessory muscles. We have seen both pulmonary molina mostly noted in both bases. Patient not using any accessory muscles or having work of breathing. Abdomen: Soft. Nontender to palpation. Bowel sounds present. No organomegaly. Neurological exam: Patient alert oriented x2. Moves 4 extremities. LABORATORY DATA: Reviewed. Home potassium 3.3. ASSESSMENT AND PLAN: 1. Catheter-associated peritonitis secondary to peritoneal dialysis. White cell count is okay. The patient is still complaining of very mild abdominal pain. The patient has been switched to regular dialysis. We are going to administer antibiotics on dialysis after talked with Dr. Medley and he is going to take care of the antibiotics for this patient. zSosa from this standpoint patient can be discharged. 2. Urinary tract infection. Actually, the urine culture showed GP so we will continue with Zosyn. 3. Abdominal pain secondary to peritonitis getting better we will continue to monitor. 4. End-stage renal disease, on hemodialysis. Patient has been started on routine hemodialysis yesterday and today Nephrology standpoint, patient can be discharged. 5. Mild hypokalemia we will replete potassium today. 6. Chronic obstructive pulmonary disease. The patient is having an exacerbation and we will change frequency of DuoNebs to q. 4 hour schedule. If tomorrow, the patient is feeling better, the patient can be discharged. Chest x-ray PA and lateral,has been ordered, and we will see what it shows. 7. Disposition: I think this patient is better from chronic obstructive pulmonary disease exacerbation. Tomorrow he can be discharged. cc: Phani Sinclair MD
[2018-07-26] MEDS: ZOSYN 2.25 GM in NS 50 ML IV SCH (14:55)
[2018-07-26] MEDS: NORCO-5 PO PRN (15:05)
[2018-07-26] MEDS ORDERED: ROCEPHIN 1 GM in NS 50 ML IV SCH (15:30)
[2018-07-26] MEDS: DUONEB (A & A) INH SCH ×3 (16:10→23:24)
[2018-07-26] MEDS ORDERED: ROCEPHIN ONE (17:07)
--- NOTE | 2018-07-27 01:02 | NEPHROLOGY PROGRESS NOTE ---
DATE: 07/26/2018 SUBJECTIVE: She was started on supplemental oxygen this morning, because her O2 saturation was 87%. She currently does not have any complaints. She was seen during dialysis approximately 11 a.m. She did admit that she has had some vaginal bleeding that she noticed for the first time after her surgery. It is improving. OBJECTIVE: Vital Signs: Blood pressure 119/66, heart rate 81, respiration 18, afebrile. General: No acute distress. Skin: Warm and dry. Conjunctivae are pink. Neck: Neck veins are not distended. Heart: Regular. No gallops. Lungs: Equal. No crackles. Abdomen: Still some tenderness, but minimal. Bowel sounds are present. No organomegaly. Extremities: Have no edema, clubbing, or cyanosis. IMPRESSION: 1. Chronic kidney disease, 5D. She is currently undergoing hemodialysis. Outpatient plan has been arranged. 2. Peritonitis. I have arranged for her to receive ceftazidime 2 g and vancomycin 1 g every dialysis for the next 7 treatments. However, I have subsequently been informed that her culture grew Neisseria gonorrhea. We will ask Dr. Davidson his advice regarding antibiotic choices going forward. 3. Electrolytes/acid base acceptable. 3K bath. We will use a 3K bath in the outpatient arena as well. 4. Anemia. Her hemoglobin has fallen progressively since admission. No evident bleeding, except mild and improving vaginal bleeding, as above. cc: Gregorio Medley MD
[2018-07-27] MEDS: DUONEB (A & A) INH SCH ×4 (03:14→16:20)
[2018-07-27 04:19] VITALS: BP 127/59
[2018-07-27] MEDS: PRILOSEC PO SCH (06:28)
[2018-07-27 06:40] LABS: BASO# 0.02 X1000 (0.0-0.2); BASO% 0.4 % (0.0-0.8); EOS# 0.06 X1000 (0.0-0.7); EOS% 1.1 % (0.0-10.0); HEMATOCRIT 31.4 % (37.0-47.0); HEMOGLOBIN 10.1 g/dL (12.0-16.0); IMM GRAN# 0.03 X1000 (0.0-0.04); IMM GRAN% 0.5 % (0.0-0.5); LYMPH# 0.87 X1000 (1.2-3.4); LYMPH% 15.6 % (20.5-51.1); MCH 32.8 PG (27-31); MCHC 32.2 g/dL (33-37); MCV 101.9 FL (81-99); MONO# 0.43 X1000 (0.11-0.59); MONO% 7.7 % (1.7-9.3); MPV 9.6 FL (7.4-10.4); NEUT# 4.18 X1000 (1.4-6.5); NEUT% 74.7 % (42.2-75.2); PLT 242 X1000 (130-400); RBC 3.08 XMIL (4.2-5.4); RDW 11.9 % (11.5-14.5); WBC 5.59 X1000 (4.8-10.8)
[2018-07-27 06:56] LABS: ALBUMIN 3.1 g/dL (3.5-5.0); PHOSPHORUS 3.1 mg/dL (2.7-4.5); POTASSIUM 3.5 mmol/L (3.5-5.1)
[2018-07-27] MEDS: CELEXA PO SCH (10:23)
[2018-07-27] MEDS: ROCALTROL PO SCH (10:24)
[2018-07-27] MEDS: MAG-OX PO SCH (10:24)
[2018-07-27] MEDS: SODIUM CHLORIDE 0.9% INJ SCH (10:24)
[2018-07-27] MEDS: LASIX PO SCH (10:24)
[2018-07-27] MEDS: PROTONIX IV SCH (10:24)
[2018-07-27] MEDS: PATIENT'S OWN MED PO SCH ×2 (10:25→15:47)
[2018-07-27] MEDS: NORCO-5 PO PRN ×2 (10:32→15:45)
--- NOTE | 2018-07-27 15:24 | NEPHROLOGY PROGRESS NOTE ---
DATE: 07/27/2018 SUBJECTIVE: She is still sore, but no other major complaints. Her breathing is fine today. OBJECTIVE: Blood pressure 127/59, heart rate 75, respiratory rate 18 and afebrile. General: No acute distress. Skin: Warm and dry. HEENT: Conjunctivae are pink. Neck: Neck veins are nondistended. Heart: Regular. No gallops. Lungs: Equal without crackles or wheezes. Abdomen: Soft and nontender. Bowel sounds are present. Extremities: No cyanosis, clubbing or edema. IMPRESSION: 1. Chronic kidney disease 5D. She had dialysis yesterday, and her next planned treatment will be at the outpatient clinic on Sunday. 2. Peritonitis/PID. She is going to receive Fortaz at the outpatient dialysis center. She will go home on Flagyl and doxycycline to complete two weeks, and I have spoken to her about having a pelvic exam at her earliest convenience. She will take care of this. cc: Gregorio Medley MD
--- NOTE | 2018-07-27 23:53 | DISCHARGE SUMMARY ---
ADMISSION DATE: 07/23/2018 DISCHARGE DATE: 07/27/2018 DISCHARGE DIAGNOSES: 1. Peritonitis, associated to peritoneal dialysis catheter. Improved. 2. Pelvic inflammatory disease. 3. Abdominal pain, secondary to condition #1. Improved. 4. End-stage renal disease, on hemodialysis. 5. Gastroesophageal reflux disease. 6. Chronic obstructive pulmonary disease, in mild exacerbation. 7. Deep vein thrombosis prophylaxis. CONSULTATIONS: 1. Dr. Gregorio Medley from Nephrology. 2. Dr. Julian Green from General Surgery. PROCEDURES: 1. Chest x-ray done on admission showed minimal pulmonary edema. 2. Abdomen and pelvis CT showed moderate amounts of free fluid in the abdomen that seemed to be related to peritoneal dialysis, with cholelithiasis. 3. Culture of peritoneal fluid showed Neisseria gonorrhoeae. 4. Urine culture showed yeast. 5. Placement of lower right internal jugular vein tunneled dialysis catheter, placed by Dr. Julian Green. 6. Removal of peritoneal dialysis catheter. HOSPITAL COURSE: This patient came to the emergency department complaining of abdominal pain, nausea, and vomiting. We suspect that she may have a peritonitis secondary to peritoneal dialysis catheter, so we decided to start antibiotics on this patient. The patient actually was on Zosyn for her condition. Regarding dialysis, because of the abdominal discomfort caused by the catheter, it was decided to start hemodialysis. Patient actually received 2 days of consecutive hemodialysis without any problem. Right tunneled catheter has been placed for continuous access for that. Considering that she has positive ascitic fluid culture for Neisseria gonorrhoeae, what we have done is to consult ID, and we were recommended to treat this as a pelvic inflammatory disease with metronidazole, with doxycycline, and also we will continue with cefotaxime. That is going to be given on dialysis. We will provide medications for a couple weeks. Patient reports feeling fine last day. Previous day of hospitalization, the patient was complaining of shortness of breath, and physical examination disclosed some wheezing. We put her on scheduled doses of DuoNeb, but the patient next day was completely fine. The patient is being discharged in stable condition. Antibiotics for treating this pelvic inflammatory disease IV will be taken care of by Dr. Medley. DISCHARGE PHYSICAL EXAMINATION: Vital Signs: Temperature 98.5 degrees, heart rate 75, respiratory rate 18, blood pressure 127/59, O2 saturation 99% on room air. General: This is a chronically ill-looking 52-year-old female, lying in bed in no acute distress. HEENT: Normocephalic, atraumatic. Neck: No JVD noted. No carotid bruits. No lymphadenopathy. No thyromegaly. Cardiovascular: S1, S2 heard. No murmurs, gallops, or rubs. Regular rate and rhythm. Respiratory: Minimal wheezing noted in both pulmonary bases. Patient is not using any accessory muscles or having work of breathing. Abdomen: Soft. Nontender to palpation. Bowel sounds present. No organomegaly. Extremities: No clubbing, cyanosis, or edema. Peripheral pulses present in both legs. Neurological: Patient alert, oriented x3. Moves 4 extremities. DISCHARGE DISPOSITION: Home to self-care. MEDICATION: 1. Doxycycline 100 mg p.o. twice daily for two weeks. 2. Metronidazole 50 mg 1 tablet p.o. twice daily for 2 weeks. 3. Rayne 5 mg 1 tablet p.o. every 4 hours as needed for pain. 4. DuoNeb 1 inhalation every 4 hours as needed for shortness of breath. 5. Calcitriol 0.25 mcg daily. 6. Celexa 40 mg 1 tablet p.o. daily. 7. Ferric citrate 210 mg 1 tablet p.o. 2 times per day. 8. Lasix 80 mg 1 tablet p.o. b.i.d. 9. Omeprazole 40 mg 1 tablet p.o. daily. 10. Potassium chloride 20 mEq 1 tablet p.o. daily. 11. Spiriva 1 inhalation daily. 12. Magnesium oxide 400 mg 1 tablet p.o. daily. FOLLOWUP: With Dr. Medley in 1 to 2 weeks. TIME DISCHARGING THIS PATIENT: 35 minutes. cc: Phani Sinclair MD
== END 2018-07-27 16:47 | disposition home or self-care (01) | DRG 981 ==
LOC: SUPCPDRO → ED 21:23 → SUATTDRO 07-23 03:07 → 3N 07-23 03:07
PROVIDERS: ATTEND Internal Medicine
CPT/HCPCS: 71010; 71045; 74177; 77001; 80048; 80053; 80069; 80074; 80202; 81001; 82040; 83605; 83615; 83735; 84100; 85025; 85027; 85610; 85730; 87040; 87070; 87077; 87088; 87205; 88300; 89051; 93005; 94640; 94761; 94799; 96361; 96365; 96375; 96376; 99285; A9270; C1750; C9113; J0696; J1200; J1644; J2270; J2405; J2543; J3010; J3370; J3480; J7030; J7040; J7050; Q9967; S0164

== ENCOUNTER 2018-09-21 12:06 | Inpatient (IN) ==
[2018-09-21 14:54] LABS: BASO# 0.02 X1000 (0.0-0.2); BASO% 0.3 % (0.0-0.8); EOS# 0.01 X1000 (0.0-0.7); EOS% 0.1 % (0.0-10.0); HEMOGLOBIN 16.2 g/dL (12.0-16.0); LYMPH# 0.87 X1000 (1.2-3.4); LYMPH% 12.2 % (20.5-51.1); MCHC 32.4 g/dL (33-37); MCV 95.6 FL (81-99); MONO# 0.16 X1000 (0.11-0.59); MONO% 2.2 % (1.7-9.3); MPV 9.7 FL (7.4-10.4); NEUT# 6.07 X1000 (1.4-6.5); NEUT% 85.2 % (42.2-75.2); PLT 169 X1000 (130-400); RBC 5.23 XMIL (4.2-5.4); RDW 12.9 % (11.5-14.5); WBC 7.13 X1000 (4.8-10.8)
[2018-09-21] MEDS ORDERED: ATIVAN ONE (15:03)
--- NOTE | 2018-09-21 15:05 | Diag Imaging Result Doc PS360 ---
FLAT/UPRIGHT ABD/1 VIEW CHEST - 09/21/2018 INDICATION: AMS TECHNIQUE: COMPARISON: 07/22/2018 FINDINGS: There is a new right-sided dialysis catheter with the tip at the lower SVC. The chest remains clear. Heart size and pulmonary vascularity is normal. There is a nonobstructive bowel gas pattern. No free air or abnormal calcifications. IMPRESSION: No acute disease. Electronically signed by Cristiano Egan 09/21/2018 3:02 PM
[2018-09-21] MEDS ORDERED: APRESOLINE ONE (15:11)
[2018-09-21 15:47] LABS: ALB/GLOB RATIO 1.6; ALBUMIN 4.5 g/dL (3.5-5.0); CALCIUM 10.5 mg/dL (8.8-10.2); CREATININE 4.8 mg/dL (0.5-0.9); POTASSIUM 5.5 mmol/L (3.5-5.1); TOTAL BILIRUBIN 0.35 mg/dL (0.20-1.00); TOTAL PROTEIN 7.4 g/dL (6.3-8.3)
--- NOTE | 2018-09-21 16:21 | Diag Imaging Result Doc PS360 ---
CT HEAD W/O CONTRAST - 09/21/2018 INDICATION: AMS COMPARISON: None FINDINGS: The ventricles and sulci are normal in size and contour. No intracranial mass or hemorrhage. The skull is intact. The sinuses mastoids and middle ears are clear. IMPRESSION: Negative exam. This exam was performed using automated exposure control, adjustment of mA or kV according to patient size, and/or use of iterative reconstruction technique Electronically signed by Cristiano Egan 09/21/2018 4:19 PM
[2018-09-21 16:41] LABS: UR AMPHETAMINES QUAL NONE DETECTED (NONE DETECT); UR BARBITUATES QUAL NONE DETECTED (NONE DETECT); UR BENZODIAZEPIN QUAL PRESUMPTIVE POSITIVE (NONE DETECT); UR CANNABINOIDS QUAL NONE DETECTED (NONE DETECT); UR COCAINE QUAL NONE DETECTED (NONE DETECT); UR METHADONE QUAL NONE DETECTED (NONE DETECT); UR OPIATES QUAL NONE DETECTED (NONE DETECT); UR OXYCODONE QUAL NONE DETECTED (NONE DETECT); UR PCP QUAL NONE DETECTED (NONE DETECT)
--- NOTE | 2018-09-21 18:55 | PROVIDER DOCUMENTATION ---
This chart was entered by Arelis Gray Scribe, acting as scribe for Elda Sorensen MD. HPI-General Adult - General Chief Complaint: Nausea/Vomiting Stated Complaint: HIGH BP Time Seen by Provider: 09/21/18 14:31 Source: family Allergies/Adverse Reactions: Patient Allergies Allergy/AdvReac Type Severity Reaction Status Date / Time Sulfa (Sulfonamide Allergy Unknown Verified 11/18/15 10:48 Antibiotics) Home Medications: Home Medication List Medication Instructions Recorded Confirmed Last Taken Type Calcitriol 0.5 mcg PO DAILY 07/23/18 09/21/18 09/20/18 History Citalopram [Celexa] 40 mg PO DAILY 07/23/18 09/21/18 09/20/18 History Furosemide [Lasix] 80 mg PO BID 07/23/18 09/21/18 09/20/18 History Magnesium Oxide [Mag-Ox] 400 mg PO DAILY 07/23/18 09/21/18 09/20/18 History Omeprazole [Prilosec] 40 mg PO DAILY 07/23/18 09/21/18 09/20/18 History Potassium Chloride [Klor-Con M20] 20 meq PO DAILY 07/23/18 09/21/18 09/20/18 History Tiotropium Hayti Inhaler 18 mcg IH DAILY 07/23/18 09/21/18 09/20/18 History [Spiriva] Carvedilol [Coreg] 6.25 mg PO DAILY 09/21/18 09/21/18 Unknown History Ferric Citrate [Auryxia] 210 mg PO AC 09/21/18 09/21/18 09/20/18 History - History of Present Illness -Gen Adult Nature of Presenting Problems: 53yof with hx of COPD, HTN, renal disease presents with elevated blood pressure (230/94), nausea, vomiting, and headache for 2 days. The patient's sister acts as historian. She reports the patient is a dialysis patient. She reports her renal physician is Dr. Anglin. She reports she had her last dialysis appointment on 09/20/18. She reports she has had similar episodes like this one today. The patient has limited verbal responsiveness. The patient's sister is at bedside. Location of Pain/Injury: reports: head Pain Radiation: reports: no radiation Quality of Pain: reports: aching Severity: reports: mild Onset/Duration: reports: 2 days ago Timing: reports: still present, intermittent, constant Context/Activities at Onset: reports: none Modifying Factors: improves with: nothing Associated Symptoms: reports: headaches, nausea, vomiting, other (elevated blood pressure) Similar Symptoms Previously?: No Recently seen or treated by another doctor?: No Review of Systems - Adult - REVIEW OF SYSTEMS - ADULT ROS:: limited per condition (pt is mainly verbally unresponsive) Constitutional: denies: chills, fever Eyes: reports: no symptoms reported Ears, Nose, Mouth & Throat: reports: no symptoms reported Cardiovascular: reports: other (elevated blood pressure) Respiratory: reports: no symptoms reported Gastrointestinal: reports: nausea, vomiting Genitourinary: reports: no symptoms reported Musculoskeletal: reports: no symptoms reported Integumentary: reports: no symptoms reported Neurological: reports: headache/migraines Psychiatric: reports: no symptoms reported Endocrine: reports: no symptoms reported Hematologic/Lymphatic: reports: no symptoms reported Allergic/Immunologic: reports: no symptoms reported All Other Systems: Reviewed and Negative Past History - Adult - PAST MEDICAL HISTORY-ADULT Review of Records: reports: Old Records Reviewed, Nursing Assessment Review, Medications Reviewed Major Childhood Illnesses: reports: denies history Cardiovascular: reports: HTN Respiratory: reports: COPD Gastrointestinal: reports: GERD Obstetrical/Gynecological: reports: denies history Genitourinary: reports: ESRD Musculoskeletal: reports: denies history Neurological: reports: denies history Psychiatric: reports: anxiety, depression Endocrine/Immune: reports: denies history Other Conditions: reports: denies history, other (iron deficiency anemia) - PRIOR SURGERIES/PROCEDURES Surgical/Procedure History: reports: other (lumpectomy) - IMMUNIZATION STATUS Childhood Immunizations: See Nurse Assessment Flu Vaccine: See Nurse Assessment - FAMILY HISTORY Family History: reviewed, not pertinent - SOCIAL HISTORY Smoking: cigarettes, less than 1 pack/day Substance Use: denies Living Situation: family Physical Exam-General - PHYSICAL EXAM-ADULT Initial Vital Signs Reviewed: Yes - CONSTITUTIONAL General Appearance: other (pt is mainly verbally unresponsive, pt is lying in bed with her eyes closed, pt follows some commands, pt responds to sternal rub) - EYES Eyes: PERRL/EOMI, pink conjunctivae - NECK Neck: non-tender, supple - RESPIRATORY Respiratory: chest non-tender, lungs clear, normal breath sounds, no pleuratic chest pain, no respiratory distress, no accessory muscle use - CARDIOVASCULAR Cardiovascular: regular rate, rhythm, no murmur - GASTROINTESTINAL (ABDOMEN) Abdominal Exam: non tender, soft - SKIN Integumentary: normal color, warm/dry - NEUROLOGIC Neurologic: other (unable to assess due to pt is mainly verbally unresponsive, pt follows some commands) - PSYCHIATRIC Psych/Mental Status: other (unable to assess due to pt is mainly verbally unresponsive, pt follows some commands) Progress - PLAN OF CARE/RESULTS Progress/Plan/Lab Results: Vital Signs - 8 hr 09/21/18 12:39 09/21/18 12:51 09/21/18 12:53 Temperature 98.1 F Pulse Rate 114 H Respiratory Rate 20 Blood Pressure 191/94 201/127 O2 Sat by Pulse Oximetry 94 L 99 98 09/21/18 13:00 09/21/18 13:10 09/21/18 13:20 Temperature Pulse Rate Respiratory Rate Blood Pressure O2 Sat by Pulse Oximetry 96 95 95 09/21/18 13:30 09/21/18 13:40 09/21/18 13:50 Temperature Pulse Rate Respiratory Rate Blood Pressure O2 Sat by Pulse Oximetry 97 97 97 09/21/18 14:04 Temperature Pulse Rate 117 H Respiratory Rate 20 Blood Pressure 202/96 O2 Sat by Pulse Oximetry 97 Result Diagrams: 09/21/18 14:02 09/21/18 14:02 - EKG 1 Time of EKG reading by physician:: 15:44 EKG Read and Signed by:: Elda Sorensen EKG Interpretation (*Must complete 3 of following elements*): Abnormal Rate: 109 Rhythm: Sinus tachycardia [place]: left ST Wave: non-specific ST changes Comments: possible Left atrial enlargement, possible Anterior infarct - XRAY 1 XRAY Study: Abdomen Impression: Abnormal (FINDINGS: There is a new right-sided dialysis catheter with the tip at the lower SVC. The chest remains clear. Heart size and pulmonary vascularity is normal. There is a nonobstructive bowel gas pattern. No free air or abnormal calcifications. IMPRESSION: No acute disease.) - CT/MRI 1 CT Study: Head Impression: Normal (FINDINGS: The ventricles and sulci are normal in size and contour. No intracranial mass or hemorrhage. The skull is intact. The sinuses mastoids and middle ears are clear. IMPRESSION: Negative exam.) - CONSULTS/PCP/HOSPITALIST Notification #1 *Consult/PCP/Hospitalist*: Dr. Lauren Time Discussed: 18:54 Consult Disposition: Admit Departure - Departure Date of Disposition Decision: 09/21/18 Time of Disposition Decision: 18:55 DIAGNOSIS: ESRD (end stage renal disease) Altered mental status, unspecified Qualifiers: Altered mental status type: unspecified Qualified Code(s): R41.82 - Altered mental status, unspecified Disposition: ADMITTED INPATIENT 09 Certified Medical Emergency: Emergent Condition: Stable Referrals and Follow-Ups: Gregorio Medley MD [Primary Care Provider] - - Critical Care Note This patient required my direct & personal management of CC.: No Attestation - Physician/ MEG Attestation Patient care was provided by Advanced Practice Provider:: No The physician spent face to face time with patient:: Yes Advanced Practice Provider documentation review:: Supervising physician onsite and consulted in the evaluation and care of this patient. The physician did have a face to face encounter with the patient. This chart was documented by the indicated scribe, (Arelis Gray Scribe) and accurately reflects the services I performed and decisions made by me, Elda Sorensen MD, as attested by the provider's signature.
[2018-09-21] MEDS ORDERED: APRESOLINE IV ONE (19:05)
[2018-09-21] MEDS ORDERED: ATIVAN IV ONE (19:05)
[2018-09-21] MEDS ORDERED: CARDENE 40 MG/NS 40 MG/200 ML PIGGYBACK IV SCH (20:00)
[2018-09-21] MEDS ORDERED: NS IV ONE (20:03)
[2018-09-21] MEDS ORDERED: CEREBYX 1,000 MG in NS 50 ML IV ONE (20:03)
[2018-09-21] MEDS ORDERED: CEREBYX IV ONE (20:03)
[2018-09-21 20:37] LABS: ALLEN TEST YES; BE -0.5 mmoll (-3.0-3.0); BLOOD TYPE ARTERIAL; HCO3-(ACT) 24.5 mmoll (20.0-26.0); O2(CT) 21.4 mL/dL (15.0-23.0); O2HB 96.2 % (95.0-99.0); PCO2(98.6) 42 mmHg (35-45); PO2(98.6) 121 mmHg (60-100); SAMPLE BLOOD; SAO2 98.3 % (95.0-100.0); THB 15.7 g/dL (11.5-17.4); pH(98.6) 7.38 (7.35-7.45)
[2018-09-21 20:38] LABS: MODALITY CANNULA
--- NOTE | 2018-09-21 20:41 | HISTORY AND PHYSICAL ---
CHIEF COMPLAINT: Altered mentation. This is a 53-year-old female with history of dialysis. She has not been feeling very well over the last week, and apparently reportedly she has had decreased dialysis sessions the last 2 or 3 dialyses. She has been on peritoneal dialysis previously, but I do not think she is on peritoneal dialysis now. She is on regular dialysis, for which she has a right dialysis catheter. Today she came in. She was extremely hypertensive with a systolic in the 230s reportedly. The only ones recorded here are in the 190s but to 200s. While she was in the ER she had a generalized tonic-colonic seizure, for which she has had diminished responsiveness since that time. She was given Ativan. Reportedly also nausea, vomiting, headache. Blood pressures has been very high, and again the dialysis has been abbreviated just because she has not been very tolerant of it. Workup in the ER showed, again, the elevated blood pressure. The rest of her numbers were really unremarkable. Head CT was normal. She is still fairly altered, and admitted for seizure, altered mental status, possible status. PAST MEDICAL HISTORY: 1. Endstage renal. 2. CAD. 3. No diabetes. No previous CVA or seizure history. 4. COPD. 5. Dyslipidemia. 6. Anemia. PAST SURGICAL HISTORY: Breast biopsy, renal biopsy, PD port placement which I think had infection, and now she is on hemodialysis. SOCIAL HISTORY: She is a pack-a-day smoker to a pack and a half for 36 years. No alcohol. No drugs. FAMILY HISTORY: Positive for CHF, CAD, diabetes. ALLERGIES: Sulfa. MEDICATIONS: Her list is ferrous sulfate, citrate, calcitriol, Celexa, Coreg, Klor-Con, Lasix, Mag-Ox, Prilosec and Spiriva. REVIEW OF SYSTEMS: Otherwise negative [id number] review of systems. PHYSICAL EXAMINATION: VITAL SIGNS: Blood pressure was 188/90, heart rate of 88, respiratory rate 20, temperature was 98.1 degrees. GENERAL: A well-developed female in no acute distress, just very minimally responsive, but she did respond to noxious stimuli. HEENT: Eye exam: Pupils equal, round and reactive to light. There is no gaze preference. Sclerae are anicteric. NECK: Supple. CARDIOVASCULAR: Regular rate and rhythm. No murmurs, gallops or rubs. PULMONARY: Bilateral breath sounds with wheezing throughout. GASTROINTESTINAL: Soft, nontender, nondistended. Bowel sounds are positive. EXTREMITIES: No clubbing or cyanosis. LYMPHATIC EXAM: No peripheral edema. She does have a overall brownish discoloration to her skin. NEUROLOGIC: Very difficult to elaborate. She moves her upper extremities without difficulty, but she has no ability otherwise. It is very hard to assess her clinical status as far as neurological. LABORATORY DATA: UDS is positive for benzodiazepines. DIAGNOSTIC DATA: Her head CT was negative. ASSESSMENT AND PLAN: This is a 53-year-old female presenting with altered mentation, high blood pressure and possible seizure. 1. Altered mentation with seizure in the setting of high blood pressure. This certainly could be stroke versus transient ischemic attack. Head CT is unremarkable. It could also be posterior reversible encephalopathy syndrome. We will pursue an MRI when available. At this point it will most likely be Sunday, and we will get a Neurology consult when available. 2. Hypertensive emergency. We will initiate Cardene because she seems to be confused. 3. Possible seizure. I will initiate fosphenytoin and continue to monitor closely. We will get Neurology and MRI as described. 4. Endstage renal disease. We will consult Dr. Medley for evaluation and his team for evaluation for dialysis. 5. Chronic obstructive pulmonary disease. We will continue breathing treatments and follow closely. 6. Disposition pending her clinical status. We will monitor her in the intensive care unit due to her elevated blood pressure and seizure, and continue to follow closely. cc: MD Gregorio Leos MD
[2018-09-21] MEDS ORDERED: NS 1,000 ML IV ONE (20:50)
[2018-09-21] MEDS ORDERED: DUONEB (A & A) INH PRN (21:41)
[2018-09-21] MEDS ORDERED: TYLENOL PO PRN (21:41)
[2018-09-21] MEDS ORDERED: ZOFRAN IV PRN (21:41)
[2018-09-21] MEDS ORDERED: PROTONIX IV SCH (21:41)
[2018-09-21] MEDS ORDERED: SODIUM CHLORIDE 0.9% INJ SCH (21:41)
[2018-09-21] MEDS: HEPARIN SUBQ SCH (22:06)
[2018-09-21] MEDS: DUONEB (A & A) INH SCH (22:16)
[2018-09-22] MEDS: DUONEB (A & A) INH SCH ×2 (04:10→09:27)
[2018-09-22 06:28] LABS: HEMATOCRIT 43.2 % (37.0-47.0); HEMOGLOBIN 13.8 g/dL (12.0-16.0); MCH 31.4 PG (27-31); MCHC 31.9 g/dL (33-37); MCV 98.2 FL (81-99); MPV 10.1 FL (7.4-10.4); RBC 4.4 XMIL (4.2-5.4); RDW 13.5 % (11.5-14.5); WBC 6.81 X1000 (4.8-10.8)
[2018-09-22 06:50] LABS: CALCIUM 9.6 mg/dL (8.8-10.2); POTASSIUM 5.8 mmol/L (3.5-5.1)
--- NOTE | 2018-09-22 07:47 | Diag Imaging Result Doc PS360 ---
CHEST-PORTABLE - 09/22/2018 INDICATION: dyspnea COMPARISON: 09/21/2018 FINDINGS: Stable dialysis catheter. Stable granuloma in the left upper lobe. No infiltrates or edema. Heart size is normal. IMPRESSION: No acute disease. Electronically signed by Cristiano Egan 09/22/2018 7:44 AM
[2018-09-22] MEDS: HEPARIN SUBQ SCH ×2 (09:34→21:16)
--- NOTE | 2018-09-22 09:56 | NEPHROLOGY CONSULTATION ---
DATE: 09/22/2018 REASON FOR ADMISSION: Altered mental status, hypertensive urgency. REASON FOR CONSULTATION: CKD 5D, assist with management. CONSULTING PHYSICIAN: Dr. Lauren. HISTORY OF PRESENT ILLNESS: This is a 53-year-old female, known to our service for end-stage renal disease who previously was on peritoneal dialysis but now is on hemodialysis. She dialyzes at the [facility] on a Sunday, Sunday, Sunday schedule. Her last dialysis treatment was on Sunday. Reportedly, she has been coming off dialysis early and has not tolerated hemodialysis well. The patient came in to the emergency room secondary to altered mental status. She was noted to be extremely hypertensive with a systolic in the 200s and was noted to have a witnessed tonic-clonic seizure in the ER. Her blood pressure has been treated and right now, she is in the 140s/80s in the intensive care unit. She is somewhat drowsy when I see her. Most of the information I have is obtained from the chart. No family is at the bedside. PAST MEDICAL HISTORY: CKD 5D - on hemodialysis, coronary artery disease, COPD, dyslipidemia, anemia, GERD, hyperparathyroidism, edema. SURGICAL HISTORY: Breast biopsy, renal biopsy, previous peritoneal dialysis catheter insertion site, hemodialysis catheter insertion. ALLERGIES: Sulfa. HOME MEDICATIONS: Listed as Coreg, Celexa, calcitriol citrate, ferrous sulfate, Klor-Con, Lasix, magnesium oxide, Prilosec, and Spiriva. FAMILY HISTORY: CHF, coronary artery disease, diabetes. SOCIAL HISTORY: Continues to smoke a pack a day. No ETOH or illicit drug use. No history of seizure or CVA. REVIEW OF SYSTEMS: Pertinent positives noted above in the HPI. PHYSICAL EXAMINATION: Vital Signs: Temperature 98.6 degrees, pulse 72, respiratory rate 15, blood pressure 147/82. Intake 550 mL, output 185 mL. General: This is a middle-aged female who appears a little bit older than stated age. Currently resting in bed. She will arouse and answer some questions and falls back to sleep. She is quite drowsy. HEENT: Normocephalic, atraumatic. SUSAN. Her oral mucosa is dry. Neck: Supple. No JVD in a reclined position. Cardiovascular: Regular rate and rhythm. No murmur or gallop noted. Pulmonary: She has some scattered wheeze bilaterally. No rales. No increased work of breathing. She is on O2 supplementation via nasal cannula. Abdomen: Soft, with positive bowel sounds. : Not inspected. Extremities: No clubbing or cyanosis. No edema. Integumentary: Skin is warm and dry. She has vascular changes noted to the lower extremities. Neurologic: She is moving her extremities. Will follow commands but again is quite drowsy. LAB DATA: WBC of 6.8, hemoglobin 13.8. Sodium 140, potassium 5.8, CO2 22, creatinine 6.0. She had a UDS positive for benzodiazepines but she was given Ativan in the ER during the seizure, after the seizure activity. Diagnostic other, CT of the head was negative. Chest x-ray indicated no acute disease with a stable granuloma in the left upper lobe. No infiltrate or edema. ASSESSMENT AND PLAN: 1. Chronic kidney disease 5D. The patient has been coming off of treatment early. Her next treatment will be tomorrow morning. We will check labs and determine her dialysis bath at that time. 2. Altered mental status with seizure in the setting of emergent hypertension. Stroke versus transient ischemic attack. Her head CT is unremarkable. Question of posterior reversible encephalopathy syndrome. We will be aware and run her on a slow flow on Sunday. 3. Question of seizure. She has got a neurology consult. Fosphenytoin has been started. 4. Electrolytes, acid-base balance, anemia. These are all stable. Dictated by YENY Fang for Gregorio Medley MD cc: Gregorio Medley MD
[2018-09-22] MEDS ORDERED: NS NEB INH SCH (12:00)
[2018-09-22] MEDS ORDERED: LABETALOL IV PRN (12:02)
--- NOTE | 2018-09-22 12:33 | PROGRESS NOTE ---
DATE: 09/22/2018 SUBJECTIVE: Patient has no complaints. She is awake, alert, oriented. This morning, she is a bit tremulous, but she says that is not unusual for her. OBJECTIVE: Vitals: Blood pressure 163/84, heart rate of 89, respiratory rate of 19, temperature was 99 degrees. I do not think she has had any fevers. Cardiovascular: Is a bit tachy, but not recorded that way. Pulmonary: Clear to auscultation bilaterally. GI: Was soft, nontender, nondistended. Bowel sounds are positive. LABORATORY DATA: CBC is normal. Basic is normal except for potassium is 5.8. Creatinine up to 6. PROBLEM LIST: 1. Seizure with encephalopathy, unclear etiology. She just had 1 episode. However, she was pretty obtunded afterwards. I am not sure she had this just from her postictal state. I did give her fosphenytoin. We will check levels. She has only had one episode, so I am on the side of holding further antiepileptic treatments until we can get a Neurology opinion, which will be tomorrow. Her head CT was negative. We will get EEG and MRI tomorrow, complete workup and we will follow accordingly. 2. Chronic obstructive pulmonary disease appears to be fairly well controlled. We will change her to Xopenex because she has got fairly significant tremors. She had been on Coreg, which I think had been initiated for blood pressure control, but she feels that was somehow related to her other issues, but I am really not completely convinced that caused any issues. She really has not been on any medications that would trigger seizures that I am aware. 3. Accelerated hypertension. She is not on blood pressure. Cardene did not need to be started. I am going to add Norvasc to her regimen. She is on Lasix, but she appears to me to be a little bit on the dry side. She was hemoconcentrated when she came in. Hemoglobin and hematocrit is 16 and 50. We gave her some gentle hydration. DISPOSITION: I anticipate discharge tomorrow if her workup is negative, pending her Neurologic workup as well. We will continue to follow closely. I think she is stable to go to the floor, so we will make those arrangements. cc: Ehsan Lauren MD
[2018-09-22] MEDS: NORVASC PO SCH (14:01)
[2018-09-22] MEDS: CELEXA PO SCH (14:01)
[2018-09-22] MEDS: VELTASSA PO SCH (14:03)
[2018-09-22] MEDS: PATIENT'S OWN MED PO SCH ×2 (14:22→18:02)
[2018-09-22] MEDS: XOPENEX NEB INH SCH ×2 (16:18→23:23)
[2018-09-22] MEDS ORDERED: LASIX PO SCH (21:00)
[2018-09-23] MEDS: XOPENEX NEB INH SCH ×3 (03:53→16:20)
[2018-09-23] MEDS ORDERED: NS 2,000 ML MISC PRN (05:42)
[2018-09-23] MEDS ORDERED: HEPARIN IV PRN (05:42)
[2018-09-23] MEDS ORDERED: TIGHT: 0.2 ML/HR FOR DIALYSIS MISC PRN (05:42)
[2018-09-23] MEDS: PATIENT'S OWN MED PO SCH ×3 (06:21→18:02)
[2018-09-23 07:01] LABS: BASO# 0.03 X1000 (0.0-0.2); BASO% 0.7 % (0.0-0.8); EOS# 0.06 X1000 (0.0-0.7); EOS% 1.4 % (0.0-10.0); HEMATOCRIT 40.6 % (37.0-47.0); LYMPH# 1.47 X1000 (1.2-3.4); LYMPH% 33.5 % (20.5-51.1); MCH 31.1 PG (27-31); MCV 97.1 FL (81-99); MONO# 0.38 X1000 (0.11-0.59); MONO% 8.7 % (1.7-9.3); MPV 10.2 FL (7.4-10.4); NEUT# 2.45 X1000 (1.4-6.5); NEUT% 55.7 % (42.2-75.2); PLT 122 X1000 (130-400); RBC 4.18 XMIL (4.2-5.4); RDW 13.1 % (11.5-14.5); WBC 4.39 X1000 (4.8-10.8)
[2018-09-23] MEDS ORDERED: SPIRIVA INH SCH (07:30)
[2018-09-23 07:33] LABS: CALCIUM 9.4 mg/dL (8.8-10.2); CREATININE 7.4 mg/dL (0.5-0.9); POTASSIUM 5.4 mmol/L (3.5-5.1)
--- NOTE | 2018-09-23 08:07 | EKG Report ---
Test Performed on : 09/21/2018 3:37:49 PM Test Reason : ED. NO EKG ORDER FOR MUSE Blood Pressure : / mmHG Vent. Rate : 109 BPM Atrial Rate : 109 BPM P-R Int : 130 ms QRS Dur : 070 ms QT Int : 340 ms P-R-T Axes : 070 -37 049 degrees QTc Int : 457 ms Sinus tachycardia. Possible Left atrial enlargement Left axis deviation Possible Anterior infarct , age undetermined Abnormal ECG When compared with ECG of 23-JUL-2018 03:39, T wave amplitude has increased in Anterior leads Unconfirmed Result
[2018-09-23] MEDS ORDERED: ROCALTROL PO SCH (09:00)
[2018-09-23] MEDS ORDERED: PRILOSEC PO SCH (09:00)
--- NOTE | 2018-09-23 10:20 | Diag Imaging Result Doc PS360 ---
MRI BRAIN W/O CONTRAST - 09/22/2018 INDICATION: r/o cva COMPARISON: Head CT from 09/21/2018 FINDINGS: There is moderate patient motion artifact. Nevertheless, the exam is diagnostic. There is no restricted diffusion. There is moderately advanced periventricular white matter hyperintensity, nonspecific but compatible with chronic microvascular disease. No intracranial mass or hemorrhage. IMPRESSION: Chronic microvascular disease. No acute process. Electronically signed by Cristiano Egan 09/23/2018 10:18 AM
--- NOTE | 2018-09-23 11:53 | NEPHROLOGY PROGRESS NOTE ---
DATE: 09/23/2018 TIME SEEN: 0655. SUBJECTIVE: Ms. Adkins is resting quietly in bed. She does have some tremor. She states that that is usual for her. She denies any acute distress. OBJECTIVE: Her most recent vital signs: Temperature 97.7 degrees, blood pressure 174/85, heart rate is 69, respirations 16, she is on room air, last recorded saturation is 98%. Intake and Output: She has had 1120 in, 1250 out. LABORATORY DATA: Sodium 137, potassium is 5.4, chloride 101, CO2 of 21, BUN 53, creatinine 7.4, glucose is 70, the patient's anion gap is 15, her calcium is 9.4. Previous albumin is 4.5. White count 4.39, hemoglobin 13, hematocrit 40.6 with a platelet count of 122,000. ABGs initially were pH 7.38, CO2 of 42, PO2 of 121 with a bicarbonate of 24.5; this is on 3 L nasal cannula with a plasma lactate of 0.8. PHYSICAL EXAMINATION: General: This is a 53-year-old white female. She is resting quietly in bed. Her head of the bed is elevated. She does have some slight tremors. Otherwise, she appears in no acute distress. Skin: Warm and dry. HEENT: Normocephalic, atraumatic. Conjunctiva is pale pink. She has SUSAN. Mucous membranes are dry. Neck: Supple. Trachea midline. No evidence of JVD. Cardiovascular: She has regular rate and rhythm. She has an S4 present. Lungs: Clear to auscultation bilateral, equal excursion on room air. Abdomen: Soft, nontender. Positive bowel sounds. Genitourinary: Adequate urine out with dialysis assist. Extremities: Have no edema. No clubbing or cyanosis. Integumentary: Patient has a tunneled catheter to her right chest wall. Neurological: She is alert and oriented x3. She does have some fine tremors to her upper extremities. ASSESSMENT AND PLAN: 1. Chronic kidney disease, stage 5D. The patient is due for her routine dialysis treatment today. We will place her on a 2 K bath. She is to dialyze for 3-1/2 hours. We will attempt to pull the patient to her outpatient dry weight. 2. Electrolytes, acid-base balance, and anemia. These are all acceptable. The patient is taking Rocaltrol and Veltassa at this point per her primary care. We will evaluate after dialysis today 3. Possible new seizure activity. This is being followed by the primary care. I would like to thank you for allowing us to follow with this patient Dictated by YENY Huntley for Gregorio Medley MD Face to face encounter, data reviewed, discussed with Dulce Maria Huerta on 09/23/18. I agree with the above assessment and plan of care. cc: YENY Huntley MD [facility]
[2018-09-23 13:46] VITALS: BP 175/71
[2018-09-23] MEDS: HEPARIN SUBQ SCH (14:27)
[2018-09-23] MEDS: NORVASC PO SCH (18:12)
[2018-09-23] MEDS: CELEXA PO SCH (18:12)
--- NOTE | 2018-09-23 18:27 | CONSULTATION ---
DATE OF CONSULTATION: 09/23/2018 REASON FOR CONSULT: Seizure. HISTORY OF PRESENT ILLNESS: A 53-year-old, right-handed, female with history of chronic kidney disease on hemodialysis, COPD and dyslipidemia. She was admitted 09/21/2018 for altered mental status. History is from the patient. She reports she was difficult to arouse by her daughter the morning of admission. On arrival to the emergency department, it was noted that her blood pressure was above 200 systolic. The patient's blood pressure was 230/90. She had a witnessed tonic-clonic seizure type event, during that time and this was witnessed in the emergency department. She received lorazepam, I believe 4 mg and was quite sedate subsequently. She was also given a loading dose of fosphenytoin x1, but that was not continued. Blood pressure was managed and has been improved since admission. She is currently receiving hemodialysis at the time of my encounter. She reports no prior history of seizure or stroke. She has been on peritoneal dialysis, but approximately 3 months ago, transitioned over to hemodialysis temporarily and she has not tolerated this. She has felt generally unwell. She says she has requested stopping her dialysis sessions early on several occasions because she has felt so poorly. She denies history of major head trauma or any major neurologic event. PAST MEDICAL HISTORY: Includes hypertension, chronic kidney disease, currently on hemodialysis. COPD, dyslipidemia, anemia. She denied coronary disease to me. Breast biopsy. Renal biopsy. Reported anxiety and depression. FAMILY HISTORY: No strokes or seizures. SOCIAL HISTORY: She is a current smoker. No alcohol. She does endorse using marijuana occasionally for her anxiety and depression. ALLERGIES: Listed to sulfa. CURRENT MEDICATIONS: Reviewed in the chart. REVIEW OF SYSTEMS: Balance of 12 was conducted and is otherwise negative except that detailed in the HPI. PHYSICAL EXAMINATION: Vital Signs: Afebrile. Blood pressure today has been 160s to 170s systolic over to 70s to 80s diastolic. Pulse 60s to 80s. Respirations 16, 99% on room air. Mental status exam/Psychiatric: Ms. Adkins is supine in bed, receiving dialysis. Appears to be asleep with eyes closed. She is easily awakened and regards. She is oriented. Speech is fluent. No language disturbance. No dysarthria. She is attentive and appropriate. Follows simple and complex commands. Left- right digit distinction preserved. Pupils equal, round, reactive to bright light. Gaze conjugate. Extraocular movements are full. Face symmetric with equal activation. Visual molina are intact to direct confrontational testing. Facial sensation reported intact. Tongue is midline. Palate elevates symmetrically. Shoulder shrug is full. No drift. Tone is equal in the limbs. Strength is symmetric and preserved in the arms and legs. She reports symmetric sensation to light touch in the arms and legs. Reflexes are 1 to 2+ at the biceps, ankles and knees bilaterally. No clonus. Plantar response is flexor. Rapid alternating movements and [id number] is intact. I did not test her gait. DIAGNOSTICS: MRI of the brain, non-contrasted showed chronic microvascular ischemic changes, but no acute findings. This was personally reviewed. Head CT noncontrast also showed no acute findings. Routine EEG was personally reviewed. Moderate generalized slowing with FIRDA. No epileptiform discharges and no seizures. LABS: Reviewed in the chart. Normal sodium. BUN 53, creatinine 7.4 today. Blood sugars normal. AST/ALT normal. Toxicology presumptive positive for benzodiazepines. ASSESSMENT AND PLAN: Single, witnessed seizure event in the setting of accelerated hypertension. There is no prior history of seizure events. Workup thus far includes no acute findings on cranial imaging and an EEG that did not show increased propensity to seizure. As her mental status has improved to baseline, and she has not had further events, I would just continue to follow clinically. I agree that there is no current indication for continued antiepileptic medication. We can revisit that should further events arise. Seizure precautions advised. She should not be driving at this time. She was also advised to discontinue the use of marijuana. Thank you for the consultation. cc: Joya Sheffield MD [facility]
[2018-09-23] MEDS: VELTASSA PO SCH (18:46)
--- NOTE | 2018-09-24 03:42 | DISCHARGE SUMMARY ---
ADMISSION DATE: 09/21/2018 DISCHARGE DATE: 09/23/2018 DISCHARGE DIAGNOSES: 1. Seizure disorder. 2. Encephalopathy. 3. Chronic obstructive pulmonary disease. 4. Accelerated malignant hypertension. 5. End-stage renal. BRIEF HISTORY: Briefly, this is a 53-year-old female presenting with end-stage renal and possible seizure disorder. She has not had any history of seizures. She has recently been on peritoneal dialysis, but I think she had infection and had to be switched over to hemodialysis. She came in reportedly with a blood pressure in the 230s and had a witnessed generalized tonic-colonic seizure per the ER physician, Dr. Sorensen and staff. She was given Ativan, after evaluation she was placed on fosphenytoin and placed in the ICU. She was not very responsive initially so we pursued an MRI which was negative, and she was initially placed on a Cardene drip, but she had resolution of her symptoms fairly quickly. The next day she was mentating and her blood pressure improved and was now at 160's over 70's. She was not on any seizure medications. Nephrology was consulted for dialysis. Dr. Sheffield was consulted for seizure. Her workup in the ER was negative. In any case she was seizure-free for over 48 hours. EEG was nonspecific. MRI was negative. Dr. Sheffield she did not feel she needed long-term therapy at this point since this was an isolated episode possibly associated with hypertension. Follow up with Neurology and follow-up with dialysis Dr. Medley for management of her blood pressure. DISCHARGE MEDICATIONS: 1. Auryxia 210 mg a.c. 2. Calcitriol 0.5 mcg daily. 3. Celexa 40 daily. 4. Coreg 6.25 daily. 5. Klor-Con 20 daily. 6. Lasix 80 b.i.d. 7. Magnesium oxide 400 daily. 8. Prilosec 40 daily. 9. Spiriva 18 daily. 10. Norvasc 10 daily which is a new medication. FOLLOW-UP: With Dr. Medley and Dr. Sheffield. TIME SPENT: A 32 minute discharge. cc: Ehsan Lauren MD
--- NOTE | 2018-09-24 13:11 | EEG REPORT ---
DATE: 09/23/2018 REFERRING PHYSICIAN: Dr. Lauren. MARKETING PROGRAM COORDINATOR: Radha Jc. BACKGROUND INFORMATION AND TECHNIQUE: This is a digitally recorded routine EEG with video. HISTORY: A 53-year-old, female patient with a witnessed seizure event in the setting of extreme hypertension. She is a dialysis patient. EEG is ordered to detect evidence of seizures. Medications include Celexa. She also had a loading dose of fosphenytoin. EEG FINDINGS: A posterior dominant alpha rhythm is not seen. The background consists of mixed frequencies, alpha, beta, theta, and some delta. Frontal intermittent rhythmic delta activity (FIRDA) is seen throughout the study. No definite persistent focal slowing. No epileptiform discharges. No seizures. Hyperventilation did not alter the record. Photic stimulation did not alter the record. The patient becomes drowsy but stage II sleep is not seen. EKG demonstrates regular intervals. IMPRESSION AND CLINICAL CORRELATION: Abnormal routine EEG due to moderate generalized slowing with FIRDA indicative of a moderate nonspecific encephalopathy. No epileptiform discharges and no seizures seen on the current study. This does not rule out an underlying seizure disorder. General slowing is a nonspecific finding that can be seen in processes that diffusely affect the cerebrum including toxic, metabolic, pharmacologic, posthypoxic, and infectious etiologies, amongst others. FIRDA is also a nonspecific finding but can be seen in metabolic encephalopathies and certain midline lesions. cc: MD Ehsan Lacey MD
== END 2018-09-23 18:45 | disposition home or self-care (01) | DRG 304 ==
LOC: ED 12:06 → ICU 20:48 → 3N 09-22 15:42
PROVIDERS: ATTEND Internal Medicine
CPT/HCPCS: 70450; 70551; 71010; 71045; 74022; 80048; 80053; 80101; 80185; 80301; 80307; 80324; 80345; 80346; 80353; 80358; 80361; 80365; 82550; 82805; 83992; 84443; 84484; 85025; 85027; 87040; 93005; 94640; 94761; 95816; 96374; 96375; 99285; A9270; C9113; G0431; G0434; G0479; G0480; J0360; J1644; J2060; J7030; Q2009; S0164